=== PATIENT | female | born 1970 | race African-American/Black ===

== ENCOUNTER 2017-11-26 18:29 | Emergency (ER) | payer BC ==
[~2017-11-26] VITALS: Ht 162.6 cm; Wt 101.0 kg
[~2017-11-26 18:29] MED LIST: AMLODIPINE BES2.5 MG PO; ASPIRIN EC325 MG PO; ATORVASTATIN CA20 MG PO; BIOTIN10 MG PO; CITALOPRAM HBR10 MG PO; CLOPIDOGREL75 MG PO; CYCLOBENZAPRINE10 MG PO; Claritin,Alavart PO; IBUPROFEN400 MG PO; LEVOTHYROXINE25 MCG PO; LISINOPRIL5 MG PO; MAGNESIUM200 MG PO; METFORMIN HCL500 MG PO; NORCO 5/3251 TABLET PO; PANTOPRAZOLE SO40 MG PO; PROAIR HFA8.5 GM IH; Proventil,Ventolin H IH; TRAZODONE HCL50 MG PO; TYLENOL REGULA325 MG PO; VITAMIN C1000 MG PO; VITAMIN D1000 INTUN PO; Vicodin,Norco 5/325 PO; celeBREX PO
[2017-11-26 19:47] LABS: ALBUMIN 4.1 g/dL (3.2-4.8)
[2017-11-26 19:48] LABS: CHLORIDE 103 mEq/L (99-109); POTASSIUM 3.9 mEq/L (3.7-5.4); SODIUM 138 mEq/L (136-147)
[2017-11-26 19:50] LABS: GLUCOSE 103 mg/dL (70-99); TOTAL PROTEIN 8.3 g/dL (6.4-8.3)
[2017-11-26 19:52] LABS: TOTAL BILIRUBIN 0.2 mg/dL (0.0-1.0)
[2017-11-26 19:53] LABS: ALKALINE PHOSPHATASE 62 IU/L (3-129)
[2017-11-26 19:54] LABS: CREATININE 0.8 mg/dL (0.6-1.3); GFR ESTIMATE (CALCULATED) > 59 mL/min/
[2017-11-26 19:55] LABS: AST (GOT) 18 IU/L (2-34); HEMATOCRIT 29.4 % (36.0-46.0); HEMOGLOBIN 9.4 G/DL (11.9-15.5); MCH 23.8 PG (29.0-34.0); MCV 74.4 FL (83-99); PLATELET COUNT 621 K/uL (156-360); RBC DIS.WIDTH-CV 19.1 % (11.8-14.6); RBC DIS.WIDTH-SD 51.1 % (39-53); RED BLOOD COUNT 3.95 M/uL (3.80-5.20); UREA NITROGEN (BUN) 19 mg/dL (9-23); WHITE BLOOD COUNT 11.8 K/uL (4.1-10.2)
[2017-11-26 19:56] LABS: ALT (GPT) 13 IU/L (3-49)
[2017-11-26 20:02] LABS: QUANTITATIVE HCG < 4.0 MIU/ML
[2017-11-26 21:55] LABS: APPEARANCE CLEAR ((CLEAR)); BILIRUBIN NEGATIVE; BLOOD NEGATIVE; COLOR YELLOW ((YELLOW)); GLUCOSE (STRIP) NEGATIVE; KETONES NEGATIVE; LEUKOCYTES NEGATIVE; NITRITE NEGATIVE; PROTEIN (STRIP) NEGATIVE; SPECIFIC GRAVITY 1.029 (1.000-1.030); UCUL ADDED? NO
[2017-11-26] MEDS ORDERED: BENTYL20 MG PO (22:18)
[2017-11-26] MEDS ORDERED: ZOFRAN ODT4 MG PO (22:18)
[2017-11-26] MEDS ORDERED: LORTAB 5-325 M1 EACH PO (22:18)
[2017-11-26 22:32] VITALS: BP 156/79
== END 2017-11-26 22:32 | disposition home or self-care (01) ==
LOC: EME 18:29
DX: K80.20 Calculus of gallbladder without cholecystitis without obstruction (principal); K59.00 Constipation, unspecified; J45.909 Unspecified asthma, uncomplicated; I10 Essential (primary) hypertension; E11.9 Type 2 diabetes mellitus without complications; F41.9 Anxiety disorder, unspecified; Z87.891 Personal history of nicotine dependence; Z98.84 Bariatric surgery status; Z88.5 Allergy status to narcotic agent
CPT/HCPCS: 76705; 80053; 81003; 84702; 85027; 99281; 99284

== ENCOUNTER → 2018-02-12 | Outpatient (CLI) | payer BC ==
[~2018-02-12] MED LIST changes: +BENTYL20 MG PO; +LORTAB 5-325 M1 EACH PO; +ZOFRAN ODT4 MG PO
== END | disposition home or self-care (01) ==
LOC: CDC 08:21
DX: Z01.810 Encounter for preprocedural cardiovascular examination (principal); R94.31 Abnormal electrocardiogram [ECG] [EKG]
CPT/HCPCS: 93000

== ENCOUNTER 2018-02-19 06:33 | Day surgery (SDC) | payer BC ==
[~2018-02-19] VITALS: Ht 162.6 cm; Wt 101.6 kg
[2018-02-19 06:55] VITALS: BP 140/67
[2018-02-19] MEDS ORDERED: HYDROCODON-ACE1 EAC7 PO (10:37)
[2018-02-19] MEDS ORDERED: COLACE100 MG PO (10:38)
[2018-02-19 12:27] VITALS: BP 148/84
[2018-02-19 13:27] VITALS: BP 135/72
[2018-02-19 14:43] VITALS: BP 142/67
== END 2018-02-19 14:50 | disposition home or self-care (01) ==
LOC: SDC
PROC: 0FT44ZZ Resection of Gallbladder, Percutaneous Endoscopic Approach (ICD-10-PCS; principal; 2018-02-19)
DX: K80.10 Calculus of gallbladder with chronic cholecystitis without obstruction (principal); E66.9 Obesity, unspecified; Z68.39 Body mass index [BMI] 39.0-39.9, adult; Z98.84 Bariatric surgery status; J45.909 Unspecified asthma, uncomplicated; E11.9 Type 2 diabetes mellitus without complications; R53.1 Weakness; Z82.3 Family history of stroke; Z82.49 Family history of ischemic heart disease and other diseases of the circulatory system; Z82.5 Family history of asthma and other chronic lower respiratory diseases; Z84.1 Family history of disorders of kidney and ureter; Z80.9 Family history of malignant neoplasm, unspecified; Z87.891 Personal history of nicotine dependence; Z88.5 Allergy status to narcotic agent
CPT/HCPCS: 88304; J0131; J1100; J1170; J1885; J2175; J2250; J2405; J2710; J2765; J3010; J7643; S0074